=== PATIENT | male | born 1955 | race Caucasian/White ===

== ENCOUNTER 2017-12-07 04:57 | Emergency (ER) | payer BC, OTHER ==
[2017-12-07 06:04] LABS: ADD MAN DIFF? NO
[2017-12-07 06:05] LABS: BASOPHIL # 0.1 10^3/ul (0.0-0.1); BASOPHILS % 0.8 % (0.0-2.0); EOSINOPHILS # 0.2 10^3/ul (0.0-0.5); HEMATOCRIT 48.2 % (42.0-52.0); HEMOGLOBIN 16.1 g/dl (14.0-18.0); LYMPHOCYTES % 26.9 % (15.0-51.0); MEAN CORPUSCULAR HEMOGLOBIN 27.8 pg (29.0-33.0); MEAN CORPUSCULAR HGB CONC 33.4 g/dl (32.0-37.0); MEAN CORPUSCULAR VOLUME 83.1 fl (82.0-101.0); MONOCYTE # 0.5 10^3/ul (0.3-0.9); MONOCYTES % 7.2 % (0.0-11.0); NEUTROPHIL # 4.5 10^3/ul (1.6-7.5); NEUTROPHILS % 61.8 % (39.0-77.0); PLATELET COUNT 220 10^3/UL (140-415); RED CELL DISTRIBUTION WIDTH 13.5 % (11.5-14.5)
[2017-12-07 06:05] LABS: WHITE BLOOD COUNT 7.4 10^3/ul (4.8-10.8)
[2017-12-07 06:43] LABS: INR 0.88; PARTIAL THROMBOPLASTIN TIME 26.3 Sec (25.0-35.0); PT RATIO 0.9
[2017-12-07 06:48] LABS: ALANINE AMINOTRANSFERASE 44 IU/L (13-69); ALBUMIN 4.5 g/dl (3.3-4.9); ALKALINE PHOSPHATASE 89 IU/L (42-121); ANION GAP 19 (8-16); ASPARTATE AMINO TRANSFERASE 30 IU/L (15-46); BILIRUBIN,INDIRECT 0.6 mg/dl (0-1.1); BILIRUBIN,TOTAL 0.6 mg/dl (0.2-1.3); BLOOD UREA NITROGEN 17 mg/dl (7-20); CALCIUM 9.8 mg/dl (8.4-10.2); CARBON DIOXIDE 26 mmol/L (21-31); CHLORIDE 106 mmol/L (97-110); CREATININE 0.94 mg/dl (0.61-1.24); GLUCOSE 145 mg/dl (70-220); POTASSIUM 3.5 mmol/L (3.5-5.1); SODIUM 147 mmol/L (135-144); TOTAL PROTEIN 7.5 g/dl (6.1-8.1)
[2017-12-07 06:59] LABS: B-TYPE NATRIURETIC PEPTIDE 21 PG/ML (0-125)
[2017-12-07] MEDS: NICARDipine HCL 30 MG CAPSULE PO (07:00)
[2017-12-07 07:03] LABS: TROPONIN-I < 0.012 ng/ml (0.00-0.12)
[2017-12-07] MEDS: IOHEXOL 100 ML (08:10)
[2017-12-07] MEDS: SOD CHLORIDE 0.9% 100 ML (08:10)
== END 2017-12-07 11:51 | disposition home or self-care (01) ==
LOC: E/R 04:57
DX: R20.0 Anesthesia of skin (principal); I10 Essential (primary) hypertension; R07.9 Chest pain, unspecified; Z79.84 Long term (current) use of oral hypoglycemic drugs; Z91.010 Allergy to peanuts
CPT/HCPCS: 36415; 70450; 71045; 71275; 75635; 80053; 83880; 84484; 85025; 85610; 85730; 93005; 99285-25

== ENCOUNTER 2017-12-27 12:55 | Inpatient (IN) | payer BC ==
[~2017-12-27 12:55] MED LIST: SUCCINYLCHOLINE CHLORIDE 100 MG/5 ML SYG IV
[2017-12-27] MEDS: IOHEXOL 300MG/ML 150 ML BTL (14:24)
[2017-12-27] MEDS ORDERED: ROCURONIUM 50 MG INJ (15:32)
[2017-12-27] MEDS ORDERED: MIDAZOLAM 1 MG/ML 2 ML INJ (15:32)
[2017-12-27] MEDS ORDERED: PROPOFOL 20 ML (15:32)
[2017-12-27] MEDS ORDERED: CEFAZOLIN 1 GM INJ (15:32)
[2017-12-27] MEDS ORDERED: PHENYLephrine (100 MCG/ML) 5ML SYG (15:36)
[2017-12-27] MEDS ORDERED: HEPARIN 1000 UNITS/ML 10 ML INJ (16:39)
[2017-12-27] MEDS: HEPARIN 1000 UNITS/ML 10 ML INJ (16:40)
[2017-12-27] MEDS ORDERED: METOCLOPRAMIDE 10 MG INJ (16:49)
[2017-12-27] MEDS ORDERED: DEXAMETHASONE 4 MG/ML 1 ML INJ (16:49)
[2017-12-27] MEDS ORDERED: ONDANSETRON 4 MG INJ (16:49)
[2017-12-27] MEDS ORDERED: ONDANSETRON 4 MG INJ IV (18:00)
[2017-12-27] MEDS ORDERED: HYDROmorphONE 0.5 MG/0.5 ML SYG IV ×2 (18:00)
[2017-12-27] MEDS ORDERED: FENTAnyl 50 MCG/ML VIAL IV ×2 (18:00)
[2017-12-27] MEDS ORDERED: EPHEDrine SULFATE 50 MG/5 ML SYG IV (18:00)
[2017-12-27] MEDS ORDERED: METOCLOPRAMIDE 10 MG INJ IV (18:00)
[2017-12-27] MEDS ORDERED: HYDROmorphONE 1 MG/ML SYG IV (18:00)
[2017-12-27] MEDS ORDERED: MEPERIDINE 25 MG INJ IV (18:00)
[2017-12-27] MEDS ORDERED: SUGAMMADEX SODIUM 200 MG/2 ML VIAL IV (18:03)
[2017-12-27] MEDS: LABETALOL HCL 20MG INJ IV (18:38)
[2017-12-27 19:02] LABS: ADD UMIC YES; UR ASCORBIC ACID 20 mg/dL (NEGATIVE); UR BILIRUBIN (Dip) NEGATIVE (NEGATIVE); UR BLOOD (Dip) 3+ mg/dL (NEGATIVE); UR CLARITY SLIGHTLY CLOUDY (CLEAR); UR COLOR YELLOW (YELLOW); UR GLUCOSE (Dip) NEGATIVE (NEGATIVE); UR KETONES (Dip) TRACE mg/dL (NEGATIVE); UR LEUKOCYTE ESTERASE (Dip) TRACE Leu/ul (NEGATIVE); UR NITRITE (Dip) NEGATIVE (NEGATIVE); UR RBC > 182 /HPF (0-5); UR SPECIFIC GRAVITY (Dip) 1.055 (1.003-1.030); UR TOTAL PROTEIN (Dip) 2+ mg/dl (NEGATIVE); UR UROBILINOGEN (Dip) NEGATIVE (NEGATIVE); UR WBC 0 /HPF (0-5)
[2017-12-27] MEDS: hydrALAzine 20 MG INJ IV (19:13)
[2017-12-27] MEDS: 1/2 NS + KCL 20 MEQ 1,000 ML IV (19:19)
[2017-12-27] MEDS: FENTAnyl 50 MCG/ML VIAL IV (20:49)
[2017-12-27 23:29] LABS: ADD MAN DIFF? NO
[2017-12-27] MEDS: DIPHENHYDRAMINE 50 MG INJ IV (23:29)
[2017-12-27 23:34] LABS: WHITE BLOOD COUNT 12.4 10^3/ul (4.8-10.8)
[2017-12-27 23:34] LABS: BASOPHILS % 0.2 % (0.0-2.0); HEMOGLOBIN 14.1 g/dl (14.0-18.0); LYMPHOCYTES # 0.7 10^3/ul (0.8-2.9); LYMPHOCYTES % 5.6 % (15.0-51.0); MEAN CORPUSCULAR HEMOGLOBIN 28.1 pg (29.0-33.0); MEAN CORPUSCULAR HGB CONC 34.4 g/dl (32.0-37.0); MEAN CORPUSCULAR VOLUME 81.7 fl (82.0-101.0); MEAN PLATELET VOLUME 10.1 fl (7.4-10.4); MONOCYTE # 0.2 10^3/ul (0.3-0.9); MONOCYTES % 1.9 % (0.0-11.0); NEUTROPHIL # 11.4 10^3/ul (1.6-7.5); NEUTROPHILS % 91.8 % (39.0-77.0); PLATELET COUNT 202 10^3/UL (140-415); RED BLOOD COUNT 5.02 10^6/ul (4.70-6.10); RED CELL DISTRIBUTION WIDTH 13.5 % (11.5-14.5)
[2017-12-27 23:50] LABS: ALANINE AMINOTRANSFERASE 48 IU/L (13-69); ALBUMIN 3.7 g/dl (3.3-4.9); ALBUMIN/GLOBULIN RATIO 1.42; ALKALINE PHOSPHATASE 77 IU/L (42-121); ANION GAP 15 (8-16); ASPARTATE AMINO TRANSFERASE 23 IU/L (15-46); BLOOD UREA NITROGEN 15 mg/dl (7-20); CALCIUM 8.9 mg/dl (8.4-10.2); CARBON DIOXIDE 22 mmol/L (21-31); CHLORIDE 109 mmol/L (97-110); CREATININE 0.83 mg/dl (0.61-1.24); GLUCOSE 143 mg/dl (70-220); POTASSIUM 3.8 mmol/L (3.5-5.1); SODIUM 142 mmol/L (135-144); TOTAL PROTEIN 6.3 g/dl (6.1-8.1)
[2017-12-28] MEDS: morphine 10 MG INJ IV ×3 (04:29→15:23)
[2017-12-28] MEDS: 1/2 NS + KCL 20 MEQ 1,000 ML IV ×2 (04:32→15:14)
[2017-12-28 08:21] LABS: ADD MAN DIFF? NO
[2017-12-28 08:24] LABS: BASOPHILS % 0.1 % (0.0-2.0); HEMATOCRIT 37.5 % (42.0-52.0); HEMOGLOBIN 12.8 g/dl (14.0-18.0); LYMPHOCYTES % 8.6 % (15.0-51.0); MEAN CORPUSCULAR HEMOGLOBIN 28.2 pg (29.0-33.0); MEAN CORPUSCULAR HGB CONC 34.1 g/dl (32.0-37.0); MEAN CORPUSCULAR VOLUME 82.6 fl (82.0-101.0); MEAN PLATELET VOLUME 10.6 fl (7.4-10.4); MONOCYTE # 0.7 10^3/ul (0.3-0.9); MONOCYTES % 5.5 % (0.0-11.0); NEUTROPHIL # 10.2 10^3/ul (1.6-7.5); NEUTROPHILS % 85.5 % (39.0-77.0); PLATELET COUNT 181 10^3/UL (140-415); RED BLOOD COUNT 4.54 10^6/ul (4.70-6.10); RED CELL DISTRIBUTION WIDTH 13.6 % (11.5-14.5)
[2017-12-28 08:24] LABS: WHITE BLOOD COUNT 11.9 10^3/ul (4.8-10.8)
[2017-12-28 08:50] LABS: ALANINE AMINOTRANSFERASE 44 IU/L (13-69); ALBUMIN 3.3 g/dl (3.3-4.9); ALBUMIN/GLOBULIN RATIO 1.32; ALKALINE PHOSPHATASE 67 IU/L (42-121); ANION GAP 16 (8-16); ASPARTATE AMINO TRANSFERASE 20 IU/L (15-46); BLOOD UREA NITROGEN 13 mg/dl (7-20); CALCIUM 8.1 mg/dl (8.4-10.2); CARBON DIOXIDE 21 mmol/L (21-31); CHLORIDE 111 mmol/L (97-110); CREATININE 0.76 mg/dl (0.61-1.24); GLUCOSE 109 mg/dl (70-220); MAGNESIUM 1.8 mg/dl (1.7-2.5); POTASSIUM 3.6 mmol/L (3.5-5.1); SODIUM 144 mmol/L (135-144); TOTAL PROTEIN 5.8 g/dl (6.1-8.1)
[2017-12-28] MEDS ORDERED: GLUCAGON 1 MG INJ IM (09:00)
[2017-12-28] MEDS ORDERED: GLUCOSE GEL 15 GRAM TUBE PO ×2 (09:00)
[2017-12-28] MEDS ORDERED: GLUCOSE GEL 15 GRAM TUBE BUCCAL (09:00)
[2017-12-28] MEDS ORDERED: DEXTROSE 50% 50 ML SYRINGE IV ×2 (09:00)
[2017-12-28] MEDS: AMLODIPINE 5 MG TAB PO (10:11)
[2017-12-28] MEDS: INSULIN ASPART [NOVOLOG] 3 ML PEN SC ×3 (11:30→21:00)
[2017-12-28] MEDS: ATORVASTATIN 80 MG TAB PO (21:00)
[2017-12-29] MEDS: 1/2 NS + KCL 20 MEQ 1,000 ML IV
[2017-12-29] MEDS: ACCU-CHEK XX (02:00)
[2017-12-29] MEDS: LANSOPRAZOLE 30 MG CAP PO (06:08)
[2017-12-29] MEDS: INSULIN ASPART [NOVOLOG] 3 ML PEN SC (07:35)
[2017-12-29] MEDS: AMLODIPINE 5 MG TAB PO (08:36)
== END 2017-12-29 11:35 | disposition home or self-care (01) | DRG 269 ==
LOC: REC 12:55 → ICU 20:13
PROC: 04V03D6 (ICD-10-PCS; principal; 2017-12-27 15:00)
PROC: B410YZZ Fluoroscopy of Abdominal Aorta using Other Contrast (ICD-10-PCS; 2017-12-27 15:00)
DX: I71.4 Abdominal aortic aneurysm, without rupture (principal); I72.3 Aneurysm of iliac artery; E78.5 Hyperlipidemia, unspecified; I10 Essential (primary) hypertension
CPT/HCPCS: 71045; 75630; 80053; 81001; 82962; 83735; 85025; 86850; 86900; 86901; 86920; 87081; 87086

== ENCOUNTER 2018-08-01 09:10 | Day surgery (SDC) | payer BC ==
[2018-08-01 10:53] LABS: ADD MAN DIFF? NO
[2018-08-01 10:56] LABS: BASOPHIL # 0.1 10^3/ul (0.0-0.1); BASOPHILS % 0.8 % (0.0-2.0); EOSINOPHILS # 0.2 10^3/ul (0.0-0.5); EOSINOPHILS % 2.1 % (0.0-7.0); HEMOGLOBIN 15.2 g/dl (14.0-18.0); LYMPHOCYTES # 1.8 10^3/ul (0.8-2.9); LYMPHOCYTES % 24.9 % (15.0-51.0); MEAN CORPUSCULAR HEMOGLOBIN 27.4 pg (29.0-33.0); MEAN CORPUSCULAR VOLUME 82.9 fl (82.0-101.0); MEAN PLATELET VOLUME 10.7 fl (7.4-10.4); MONOCYTE # 0.7 10^3/ul (0.3-0.9); MONOCYTES % 9.2 % (0.0-11.0); NEUTROPHIL # 4.5 10^3/ul (1.6-7.5); NEUTROPHILS % 62.7 % (39.0-77.0); PLATELET COUNT 208 10^3/UL (140-415); RED BLOOD COUNT 5.55 10^6/ul (4.70-6.10); RED CELL DISTRIBUTION WIDTH 14.5 % (11.5-14.5)
[2018-08-01 10:56] LABS: WHITE BLOOD COUNT 7.2 10^3/ul (4.8-10.8)
[2018-08-01 11:06] LABS: ADD UMIC YES; UR ASCORBIC ACID 20 mg/dL (NEGATIVE); UR BILIRUBIN (Dip) NEGATIVE (NEGATIVE); UR BLOOD (Dip) NEGATIVE (NEGATIVE); UR CLARITY SLIGHTLY CLOUDY (CLEAR); UR COLOR YELLOW (YELLOW); UR GLUCOSE (Dip) NEGATIVE (NEGATIVE); UR KETONES (Dip) NEGATIVE (NEGATIVE); UR LEUKOCYTE ESTERASE (Dip) 3+ Leu/ul (NEGATIVE); UR MUCUS MODERATE /HPF (NONE SEEN); UR NITRITE (Dip) NEGATIVE (NEGATIVE); UR RBC 2 /HPF (0-5); UR SPECIFIC GRAVITY (Dip) 1.024 (1.003-1.030); UR TOTAL PROTEIN (Dip) NEGATIVE (NEGATIVE); UR UROBILINOGEN (Dip) NEGATIVE (NEGATIVE); UR WBC 17 /HPF (0-5)
[2018-08-01 11:14] LABS: INR 0.87; PROTIME 11.9 Sec (11.9-14.9); PT RATIO 0.9
[2018-08-01 11:15] LABS: PARTIAL THROMBOPLASTIN TIME 28.5 Sec (23.0-35.0)
[2018-08-01 11:17] LABS: ANION GAP 11 (8-16); BLOOD UREA NITROGEN 14 mg/dl (7-20); CALCIUM 9.3 mg/dl (8.4-10.2); CARBON DIOXIDE 27 mmol/L (21-31); CHLORIDE 108 mmol/L (97-110); CREATININE 0.93 mg/dl (0.61-1.24); GLUCOSE 105 mg/dl (70-220); SODIUM 142 mmol/L (135-144)
[2018-08-01] MEDS ORDERED: MIDAZOLAM 1 MG/ML 2 ML INJ (12:47)
[2018-08-01] MEDS ORDERED: FENTAnyl 50 MCG/ML VIAL (12:47)
[2018-08-01] MEDS ORDERED: IODIXANOL LOCM 100 ML BTL (13:18)
[2018-08-01] MEDS ORDERED: LIDOCAINE 1% (MDV) 20 ML INJ (13:18)
== END 2018-08-01 17:08 | disposition home or self-care (01) ==
LOC: CCL 09:10 → SDS 09:10 → CCL 17:08
DX: I72.6 Aneurysm of vertebral artery (principal)
CPT/HCPCS: 36246; 71045; 75625; 80048; 81001; 85025; 85610; 85730; 93005

== ENCOUNTER 2018-10-14 08:50 | Inpatient (IN) | payer BC ==
[2018-10-14] MEDS: IOHEXOL 300MG/ML 150 ML BTL ×2 (10:42)
[2018-10-14] MEDS ORDERED: GELATIN SIZE 100 SPONGE (11:23)
[2018-10-14] MEDS ORDERED: THROMBIN 5000 UNIT VIAL (11:23)
[2018-10-14] MEDS ORDERED: ONDANSETRON 4 MG INJ IV (11:30)
[2018-10-14] MEDS ORDERED: HYDROmorphONE 1 MG/5 ML IV SYRINGE IV ×3 (11:30)
[2018-10-14] MEDS ORDERED: ALBUTEROL 0.083% (NEB) 2.5 MG/3 ML AMP HHN (11:30)
[2018-10-14] MEDS ORDERED: FENTAnyl 50 MCG/ML VIAL IV ×2 (11:30)
[2018-10-14] MEDS ORDERED: DIPHENHYDRAMINE 50 MG INJ IV (11:30)
[2018-10-14] MEDS ORDERED: FENTAnyl 50 MCG/ML VIAL (11:59)
[2018-10-14] MEDS ORDERED: HEPARIN 1000 UNITS/ML 10 ML INJ (12:41)
[2018-10-14] MEDS: HEPARIN 1000 UNITS/ML 10 ML INJ (13:06)
[2018-10-14] MEDS: 1/2 NS + KCL 20 MEQ 1,000 ML IV ×2 (13:30→17:02)
[2018-10-14] MEDS ORDERED: ROCURONIUM 50 MG INJ (14:19)
[2018-10-14] MEDS ORDERED: CEFAZOLIN 1 GM INJ (14:19)
[2018-10-14] MEDS ORDERED: LIDOCAINE 100 MG SYRINGE (14:19)
[2018-10-14] MEDS ORDERED: SUGAMMADEX SODIUM 200 MG/2 ML VIAL IV (14:19)
[2018-10-14] MEDS ORDERED: PROPOFOL 20 ML (14:19)
[2018-10-14] MEDS ORDERED: SUCCINYLCHOLINE CHLORIDE 100 MG/5 ML SYG IV (14:19)
[2018-10-14 15:04] LABS: ADD MAN DIFF? NO
[2018-10-14 15:05] LABS: BASOPHILS % 0.4 % (0.0-2.0); EOSINOPHILS # 0.1 10^3/ul (0.0-0.5); EOSINOPHILS % 1.7 % (0.0-7.0); HEMATOCRIT 41.7 % (42.0-52.0); HEMOGLOBIN 13.7 g/dl (14.0-18.0); LYMPHOCYTES # 1.3 10^3/ul (0.8-2.9); LYMPHOCYTES % 18.4 % (15.0-51.0); MEAN CORPUSCULAR HEMOGLOBIN 27.5 pg (29.0-33.0); MEAN CORPUSCULAR HGB CONC 32.9 g/dl (32.0-37.0); MEAN CORPUSCULAR VOLUME 83.6 fl (82.0-101.0); MEAN PLATELET VOLUME 10.9 fl (7.4-10.4); MONOCYTE # 0.5 10^3/ul (0.3-0.9); MONOCYTES % 7.5 % (0.0-11.0); NEUTROPHIL # 5.2 10^3/ul (1.6-7.5); NEUTROPHILS % 71.7 % (39.0-77.0); PLATELET COUNT 200 10^3/UL (140-415); RED BLOOD COUNT 4.99 10^6/ul (4.70-6.10); RED CELL DISTRIBUTION WIDTH 13.5 % (11.5-14.5)
[2018-10-14 15:05] LABS: WHITE BLOOD COUNT 7.2 10^3/ul (4.8-10.8)
[2018-10-14] MEDS: MEPERIDINE 25 MG INJ IV (15:09)
[2018-10-14] MEDS: HYDROmorphONE 1 MG/ML SYG IV ×3 (15:19→20:29)
[2018-10-14 15:22] LABS: ANION GAP 9 (5-13); BLOOD UREA NITROGEN 12 mg/dl (7-20); CALCIUM 8.1 mg/dl (8.4-10.2); CARBON DIOXIDE 20 mmol/L (21-31); CHLORIDE 112 mmol/L (97-110); CREATININE 0.75 mg/dl (0.61-1.24); Estimated GFR > 60 mL/min (>60); GLUCOSE 106 mg/dl (70-220); POTASSIUM 3.6 mmol/L (3.5-5.1); SODIUM 141 mmol/L (135-144)
[2018-10-14] MEDS: METOCLOPRAMIDE 10 MG INJ IV (15:27)
[2018-10-15] MEDS: 1/2 NS + KCL 20 MEQ 1,000 ML IV (05:40)
[2018-10-15] MEDS: AMLODIPINE 5 MG TAB PO (18:23)
[2018-10-15] MEDS: ATORVASTATIN 80 MG TAB PO (20:22)
[2018-10-16] MEDS: PANTOPRAZOLE (EC) 40 MG TAB PO (06:20)
[2018-10-16] MEDS: AMLODIPINE 5 MG TAB PO (07:57)
== END 2018-10-16 11:45 | disposition home or self-care (01) | DRG 272 ==
LOC: REC 08:50 → ICU 14:36
PROC: 04VF3DZ Restriction of Left Internal Iliac Artery with Intraluminal Device, Percutaneous Approach (ICD-10-PCS; principal; 2018-10-14 11:00)
DX: I72.3 Aneurysm of iliac artery (principal); I10 Essential (primary) hypertension; E78.5 Hyperlipidemia, unspecified
CPT/HCPCS: 75716; 80048; 85025; 86850; 86900; 86901